=== PATIENT | female | born 1955 | race African-American/Black ===

== ENCOUNTER 2016-04-16 11:13 | Emergency (ER) | payer OTHER ==
[~2016-04-16] VITALS: Ht 175.3 cm; Wt 95.5 kg
[~2016-04-16 11:13] MED LIST: ASPI81TA2 PO; GLYB5TAB8 PO; METF500T4 PO; VALS80TA2 PO
[2016-04-16 11:32] LABS: GLUCOSE,POINT OF CARE 243 MG/DL (70-110)
[2016-04-16] MEDS ORDERED: CYCL-375 PO (11:32)
[2016-04-16] MEDS ORDERED: OXYC-522 PO (11:32)
[2016-04-16 12:42] VITALS: BP 155/72
== END 2016-04-16 13:02 | disposition home or self-care (01) ==
LOC: EMS 11:13
DX: J40 Bronchitis, not specified as acute or chronic (principal); E11.9 Type 2 diabetes mellitus without complications; I10 Essential (primary) hypertension
CPT/HCPCS: 71020; 82962; 99284